=== PATIENT | male | born 1985 | race Hispanic/Latino ===

== ENCOUNTER 2018-09-09 18:54 | Emergency (ER) | payer SELFPAY ==
--- NOTE | 2018-09-09 21:16 | RAD ---
THREE VIEWS LEFT SHOULDER: 09/09/18 HISTORY: Left shoulder injury after fall from trampoline. AP internally, externally, and scapular Y-views left shoulder obtained. Three views left shoulder demonstrate upward migration of the distal left clavicle compared to the ac romion. There is also widening of the coracoclavicular joint. Findings compatible with a likely type III classification AC joint separation. No evidence of fractures seen. IMPRESSION: Type III left acromioclavicular joint separation. POS: [facility]
== END 2018-09-09 20:41 | disposition home or self-care (01) ==
LOC: ERS 18:54
DX: S43.102A Unspecified dislocation of left acromioclavicular joint, initial encounter (principal); W09.8XXA Fall on or from other playground equipment, initial encounter